=== PATIENT | female | born 1995 | race Caucasian/White ===

== ENCOUNTER 2017-03-13 23:44 | Emergency (ER) | payer OTHER ==
[~2017-03-13] VITALS: Ht 165.1 cm; Wt 116.4 kg
[~2017-03-13 23:44] MED LIST: AMOX875T PO; TRAZ50TA35 PO
[2017-03-13 23:57] VITALS: TEMP 36.7; Ht 165.1 cm; Wt 116.4 kg
[2017-03-14] MEDS ORDERED: HYDROCODONE/HOMATROPINE SYRUP 5MG/1.5MG 5ML UDP PO STA ×2 (00:21→02:01)
--- NOTE | 2017-03-14 00:34 | EMERGENCY ROOM VISIT NOTE ---
History Report prepared by Gildaibflory: Pat Correa Under the Supervision of: Dr. Cookie Murray D.O. First contact with patient: 00:04 Chief Complaint: RESPIRATORY PROBLEMS Stated Complaint: TROUBLE BREATHING,BACK PAIN,COUGH,NAUSEA History of Present Illness The patient is a 21 year old female who presents to the Emergency Room with complaints of constant respiratory problems beginning 3 days ago. The patient complains of a clear to orange productive cough, back pain from coughing, and nausea. She denies any abdominal pain and leg swelling. She reports that she was in an accident a few years ago and cracked her skull and had a trach. The patient notes a history of bronchitis. Source of History: patient Onset: 3 days ago Position: other (global) Quality: other (respiratory difficulty) Timing: constant Associated Symptoms: + back pain, + cough, + nausea, No abdominal pain Note: She denies any leg swelling. Review of Systems See HPI for pertinent positives & negatives. A total of 10 systems reviewed and were otherwise negative. Past Medical & Surgical Medical Problems: (1) Cranial decompression with eventual bone replacement Family History Asthma Social History Smoking Status: Never Smoker Marital Status: single Housing Status: lives with family Current/Historical Medications Scheduled Amoxicillin & Pot Clavulanate (Augmentin 875-125 mg), 1 TAB PO BID Azithromycin (Zithromax Tri-Reza), 0 PO UD Hydrocodone W/ Homatropine (Hycodan 5/1.5MG 5 Ml), 10 ML PO Q6 Medroxyprogesterone Acetate (Depo-Provera), 1 DOSE INJ Q 3 MONTHS Allergies Coded Allergies: Codeine (Verified Allergy, Unknown, itchy, 03/14/17) Physical Exam Vital Signs Date Time Temp Pulse Resp B/P Pulse Ox O2 Delivery O2 Flow Rate FiO2 03/14/17 02:46 76 16 123/80 98 03/13/17 23:57 36.7 71 18 149/93 97 Room Air Physical Exam Gen.: This is an obese female patient who appears in no respiratory distress. HEENT: Head - normocephalic and atraumatic Pupils are equal, round, and reactive to light. Extraocular eye muscles are intact, and sclera are anicteric. Nose - moist nasal mucosa without discharge. Mouth - moist buccal mucosa. Oropharynx is nonerythematous and there is no tonsillar exudate or edema noted. Neck: Supple; no JVD, nuchal rigidity, cervical lymphadenopathy. The patient has a scar on her neck from a trach. Heart: Regular rate and rhythm. There is a normal S1 and S2 with no murmurs, clicks, or gallops appreciated. Lungs: Clear to auscultation bilaterally with no wheezes, rales, or rhonchi. Abdomen: Soft, completely nontender, nondistended, with good bowel sounds. There are no palpable pulsatile masses or hepatosplenomegaly. There is no guarding, rigidity, or rebound noted. Extremities: No evidence of cyanosis, clubbing, or edema. There are easily palpable peripheral pulses. Skin: warm and dry with good turgor and no rashes. Medical Decision & Procedures ER Provider Diagnostic Interpretation: X-ray results as stated below per interpretation by me: Chest X-Ray: No pulmonary infiltrate or consolidation. Medications Administered Medications (Trade) Dose Ordered Sig/Clarissa Route Start Time Stop Time Status Last Admin Dose Admin Hydrocodone Bit/ Homatropine Methylb (Hycodan Syrup) 10 ml NOW STAT PO 03/14/17 00:21 03/14/17 00:22 DC 03/14/17 00:39 10 ML Ondansetron HCl (Zofran Odt) 4 mg NOW STAT PO 03/14/17 01:33 03/14/17 01:35 DC 03/14/17 01:37 4 MG Azithromycin (Zithromax Tab) 500 mg NOW STAT PO 03/14/17 01:33 03/14/17 01:35 DC 03/14/17 01:55 500 MG Hydrocodone Bit/ Homatropine Methylb (Hycodan Syrup) 5 ml NOW STAT PO 03/14/17 02:01 03/14/17 02:02 DC 03/14/17 02:01 5 ML Procedure 0021: Hycodan Syrup 10ml PO. 0133: Zithromax Tab 500mg PO, Zofran Odt 4mg PO. 0201: Hycodan Syrup 5ml PO. ED Course 0004: Past medical records reviewed. The patient was evaluated in room C2B. A complete history and physical exam was performed. 0021: Hycodan Syrup 10ml PO. 0046: The patient took the syrup and vomited it up. She had a chest x-ray which was unremarkable. 0133: Zithromax Tab 500mg PO, Zofran Odt 4mg PO. 0134: I reevaluated the patient. She states that all of her episodes of vomiting come from coughing hard and tonight she was coughing when she took the medication. 0201: Hycodan Syrup 5ml PO. 0217: I reevaluated the patient and she is feeling much better. This dose of Hycodan cough syrup stay down. 0223: Upon reevaluation, the patient is doing well. I discussed findings and results with the patient. She verbalized agreement of the treatment plan. The patient was discharged home. Medical Decision The patient is a 21 year old female who presents to the ED with respiratory difficulty. Differential diagnosis includes pneumonia, bronchitis, URI. Chest x-ray shows no evidence for pneumonia. The patient does have a history of bronchitis. She does have a cough productive of sputum. She is also suffering from post tussive emesis. I will give her a prescription for Hycodan cough syrup to use to minimize her cough and a prescription for antibiotics. She was told to follow-up with her PCP if her symptoms were not improving. If she develops any arrest for distress, she should return to the ER immediately. Impression Primary Impression: Bronchitis Scribe Attestation The scribe's documentation has been prepared under my direction and personally reviewed by me in its entirety. I confirm that the note above accurately reflects all work, treatment, procedures, and medical decision making performed by me. Departure Information Dispostion Home / Self-Care Prescriptions Hydrocodone W/ Homatropine (HYCODAN 5/1.5MG 5 ML) 1 Syp Syp 10 ML PO Q6, #200 ML Prov: Cookie Murray D.OTanner 03/14/17 Azithromycin (ZITHROMAX TRI-REZA) 500 Mg Tab 0 PO UD, #1 PKT 1 TAB DAILY FOR 3 DAYS Prov: Cookie Murray D.OTanner 03/14/17 Referrals No Doctor, Assigned (PCP) Forms HOME CARE DOCUMENTATION FORM, IMPORTANT VISIT INFORMATION, WORK / SCHOOL INSTRUCTIONS Patient Instructions Bronchitis Acute, My [facility] Additional Instructions Rest Hycodan- 10ml every 6 hours for cough Zithromax - daily for next 4 days Follow up with PCP if symptoms not improving
[2017-03-14] MEDS ORDERED: DPPI400 INJ (01:02)
[2017-03-14] MEDS ORDERED: AZITHROMYCIN 250 MG TAB PO STA (01:33)
[2017-03-14] MEDS ORDERED: HYDROCODONE/HOMATROPINE 1.5/5MG TAB PO STA (01:33)
[2017-03-14] MEDS ORDERED: ONDANSETRON 4MG OD TAB PO STA (01:33)
[2017-03-14] MEDS ORDERED: AZITTAB2 PO (02:22)
[2017-03-14] MEDS ORDERED: HYDR5SYP11 PO (02:33)
[2017-03-14 02:46] VITALS: BP 123/80; PULSE 76; O2SAT 98
--- NOTE | 2017-03-14 08:07 | DIAGNOSTIC IMAGING REPORT ---
CHEST 2 VIEWS ROUTINE HISTORY: cough COMPARISON: None. FINDINGS: The lungs are clear. Cardiac silhouette is normal in size. No pleural effusions. No pneumothorax. IMPRESSION: No acute process. Electronically signed by: Eric Best M.D. 03/14/2017 8:05 AM Dictated Date/Time: 03/14/2017 8:04 AM
== END 2017-03-14 02:48 | disposition home or self-care (01) ==
LOC: C.EDB 23:47 → C.EDC 03-14 02:48
DX: J40 Bronchitis, not specified as acute or chronic (principal); Z98.890 Other specified postprocedural states; Z88.5 Allergy status to narcotic agent